=== PATIENT | female | born 1960 | race Caucasian/White ===

== ENCOUNTER 2017-02-22 15:00 | Inpatient (IN) | payer BC, MEDICARE ==
[2017-03-03] MEDS ORDERED: METOCLOPRAMIDE 10 MG TABLET PO ONE (06:00)
[2017-03-03] MEDS ORDERED: FAMOTIDINE 20MG TABLET PO ONE (06:00)
[2017-03-03] MEDS ORDERED: CLINDAMYCIN 600MG/50ML PREMIX 600 MG/50 ML BAG IVPB ONE (06:00)
[2017-03-03] MEDS ORDERED: ACETAMINOPHEN 1,000 MG/100 ML BTL IV ONE (06:00)
[2017-10-13] MEDS ORDERED: CLINDAMYCIN 600MG/50ML PREMIX 600 MG/50 ML BAG IVPB ONE (06:00)
[2017-10-13] MEDS ORDERED: METOCLOPRAMIDE 10 MG TABLET PO ONE (06:00)
[2017-10-13] MEDS ORDERED: FAMOTIDINE 20MG TABLET PO ONE (06:00)
[2017-10-13] MEDS ORDERED: ACETAMINOPHEN 1,000 MG/100 ML BTL IV ONE (06:00)
[2017-10-13] MEDS ORDERED: SENNOSIDES/DOCUSATE SODIUM UD CAPSULE PO PRN (10:00)
[2017-10-13] MEDS ORDERED: HYDROMORPHONE HCL 1 MG/ML SYRINGE IVP PRN (10:00)
[2017-10-13] MEDS ORDERED: AL HYDROX/MAG HYDROX 30ML UD PO PRN (10:00)
[2017-10-13] MEDS ORDERED: OXYCODONE HCL 5 MG TABLET PO PRN ×2 (10:00)
[2017-10-13] MEDS ORDERED: MAGNESIUM HYDROXIDE 30 ML UDC PO PRN (10:00)
[2017-10-13] MEDS ORDERED: DIPHENHYDRAMINE HCL 25 MG CAPSULE PO PRN (10:00)
[2017-10-13] MEDS ORDERED: METOCLOPRAMIDE HCL 10 MG/2 ML VIAL IVP PRN (10:00)
[2017-10-13] MEDS ORDERED: ONDANSETRON HCL IV 4 MG/2 ML VIAL IVP PRN (10:00)
[2017-10-13] MEDS ORDERED: ZOLPIDEM TARTRATE 5 MG TABLET PO PRN (10:00)
[2017-10-13] MEDS ORDERED: TRANEXAMIC ACID 1,000 MG in 0.9 % SODIUM CHLORIDE 100ML 100 ML IVPB ONE (11:00)
[2017-10-13] MEDS: RINGERS SOLUTION,LACTATED 1,000 ML IV SCH (11:22)
--- NOTE | 2017-10-13 12:21 | Operative Note ---
DATE OF SURGERY: 10/13/2017 Surgeon: Quentin Juárez DO Referring physician: Rasheed Finley DO PREOPERATIVE DIAGNOSIS: Primary osteoarthritis of the right knee. POSTOPERATIVE DIAGNOSIS: Primary osteoarthritis of the right knee. OPERATION: Right total knee arthroplasty. Anesthesia: Spinal anesthetic. PROCEDURE: This 57-year-old female was taken to the operating room and placed in the supine position on the operating room table. A spinal anesthetic was administered and the right lower extremity was elevated, it was prepped with Hibiclens and draped in the usual sterile fashion. It was exsanguinated and the tourniquet inflated to 300 mmHg. All scrubbed personnel wore personal isolation suits. An anterior longitudinal midline incision was made, followed by a medial parapatellar arthrotomy incision. An intracondylar drill hole was made for the intramedullary alignment darrin and a 10 mm cut was made in the distal femur in 5 degrees of valgus. The patient had a very minimal flexion contracture. The distal femoral cuts were made and the sizing jig was affixed, and a size 67 was seen to be the appropriate size in the anterior posterior dimension, but too wide in the medial lateral direction, therefore, the 65 cutting block was pinned 2 mm anteriorly in 3 degrees of external rotation. The appropriate cuts were subsequently made. We then directed our attention to the proximal tibia. An extramedullary alignment guide was used to cut the proximal tibia, referencing a 10 mm cut off the lateral tibial plateau and the wafer of bone was removed. Remnants of the menisci and osteophytes were removed from the posterior aspect of the joint. The patient did have sclerotic bone in the medial tibial plateau; holes were drilled there for impregnation of the cement. The wound was copiously irrigated with pulse lavage and lactated Ringer's solution. Exparel was injected in the posterior, medial, and lateral corners of the joint. The patella was cut and restored to the anatomic height with a 34 x 7.8 mm patella. The trial components were inserted and a size 75 tibia 14 mm anterior stabilized bearing, a 65 mm femoral component were trialed and excellent stability throughout the full range of motion was noted. Trial components were then removed and the wound again irrigated. All bony surfaces were dried. All components were cemented into place. Excess cement removed after the insertion of each component. Initially, the size 75 tibial base plate was cemented into place, followed by the insertion of the tibial bearing, and subsequently the femur, and finally the patella were implanted. Once the cement had hardened, excellent stability of all the components was identified. The remainder of the Exparel was injected into the periosteum and joint capsule, the proximal tibia, and distal femur. A drain was placed through a separate stab incision and the arthrotomy incision was closed with 2 Vicryl, the subcutaneous tissue closed with 0 Vicryl, the skin was stapled. Sterile dressings with a Polar pack were applied. The patient was taken to the recovery room in satisfactory condition. GROSS PATHOLOGY: This patient has severe medial compartment and patellofemoral compartment osteoarthritis with marked osteophytes present laterally and severe grade 3 changes noted in the lateral tibial plateau. Final components inserted were: A Biomet Surjit Vanguard 65, cruciate retaining femoral component, a 75 tibial base plate, a 14 mm anterior stabilized E1 bearing and a 34 x 7.8 mm patella was used. LARS
[2017-10-13] MEDS ORDERED: TRANEXAMIC ACID 1,000 MG/10 ML ML IV ONE (12:31)
[2017-10-13] MEDS ORDERED: BUPIVACAINE LIPOSOME 266MG/20ML VIAL IV ONE (12:31)
[2017-10-13] MEDS: PATIENT OWN MED: MECLIZINE 25 MG PO SCH ×3 (12:54→22:06)
[2017-10-13] MEDS: ACETAMINOPHEN 1,000 MG/100 ML BTL IV SCH ×3 (12:55→23:53)
[2017-10-13] MEDS ORDERED: DIPHENHYDRAMINE HCL IV 50 MG/ML VIAL IVP ONE (13:27)
[2017-10-13] MEDS ORDERED: LIDOCAINE 2% MDV (20MG/ML) 20ML VIAL IV ONE (13:27)
[2017-10-13] MEDS ORDERED: HYDROMORPHONE HCL 2 MG/ML VIAL IV ONE (13:27)
[2017-10-13] MEDS ORDERED: PROPOFOL 10 MG/ML VIAL IV ONE (13:27)
[2017-10-13] MEDS ORDERED: ONDANSETRON HCL IV 4 MG/2 ML VIAL IVP ONE (13:27)
[2017-10-13] MEDS ORDERED: MIDAZOLAM HCL 2MG/2ML VIAL IV ONE (13:27)
[2017-10-13] MEDS ORDERED: FENTANYL PF 100MCG/2ML VIAL IV ONE (13:27)
[2017-10-13] MEDS ORDERED: FONDAPARINUX 2.5 MG/0.5 ML SYR SQ SCH (16:00)
[2017-10-13] MEDS: CLINDAMYCIN 600MG/50ML PREMIX 600 MG/50 ML BAG IVPB SCH ×2 (16:14→23:17)
[2017-10-13] MEDS: PATIENT OWN MED: OMEPRAZOLE 40 MG PO SCH (16:19)
--- NOTE | 2017-10-13 18:35 | Rehab Evaluation ---
Patient Information - Patient Information Diagnosis: OA L knee s/p TKA Ordered Treatment: PT Evaluate and Treat Status: Initial Evaluation Surgery: Yes (L TKA) Date of Surgery: 10/13/17 History: Detail (Pt states that she was originally scheduled for L TKA in February,, but her sodium was too low and it has taken this long for it to stabilize at a high enough level to have surgery. She underwent L TKA this morning and admitted to MedSurg unit.) Past Med/Melania Hx Detail: Detail Past Medical/Surgical Hx: PAST MEDICAL/SURGICAL HISTORY Past Surgical History Right meniscus repair 2005 & 2006-bilateral wrist cycsts remove Cholecystectomy Appendectomy Infusaport in/out (removed in 2010) PMH - Respiratory Hx Respiratory Disorders No Hx Bronchitis Yes PMH - Cardiovascular Hx Cardiovascular Disorders Yes Hx Edema Yes: BUE & BLE Hx Hypertension Yes Hx Heart Murmur Yes: when younger Exercise Tolerance Fair Comment: high cholesterol PMH - Neuro Hx Neurological Disorders Yes Hx Dizziness Yes: vertigo PMH - GI Hx Gastrointestinal Disorders Yes Hx Abdominal Pain Yes Hx Gastroesophageal Reflux Yes Hx Irritable Bowel Yes Hx Weight Loss/Weight Gain Yes: 40 lb loss over past year PMH - Hx Genitourinary Disorders No Hx Age of Menopause 54 Hx Bladder Problem Yes: bladder incontinence wears shield Comment: pt has hyponatremia fld restr 68 oz/day b/p meds changed PMH - Endocrine Hx Endocrine Disorders Yes Hx Thyroid Disease Yes Hx of NIDDM Yes Comment: FBS 110 - 120 PMH - Musculoskeletal Hx Musculoskeletal Disorders Yes Hx Arthritis Yes Comment: right knee pain PMH - Psych Hx Psychiatric Problems Yes Hx Anxiety Yes Hx Depression Yes Hx Suicide Attempt Yes: years ago Comment: schizophrenic, boarderline personality disorder , ?bipolar, "cutter" PMH - Hematology/Oncology Hx Hematology/Oncology Yes Disorders Hx Anemia Yes Premorbid Status: Detail (Pt was ambulating independently w/o assistive device, but she had a single tip cane that she sometimes used. She was ascending/ descending steps to enter house with two feet to a stair.) Social History: Detail (Pt lives in a mobile home with her 30 yo son who works a variable schedule at the [employer]. She anticipates a short rehab stay as she needs to be independent at home.) Precautions: [place], Fall - Time With Patient Total Time Spent With Patient (Min): 50 Treatment Procedures: Detail (PT Evaluation) Subjective Information - Subjective Information Per Patient (Pt was sound asleep upon PT's arrival, difficult to awaken. Quite groggy and disoriented for a while before starting mobility. Reported dizziness but no nausea. Acknowledged that she had received pain medication recently.) Objective Data - Pain Pain Present: Yes Pain Intensity: 7 Pain Scale Used: Numeric (1 - 10) - Mental Status Patient Orientation: Person, Place - Visual Perception Appears within normal limits for therapeutic activities - ROM Not within normal limits (CPM for L LE set to 0-60 degrees and patient seemed to be tolerating it well. L hip and ankle ROM is WNL. R LE ROM is WNL at the hip, knee and ankle.) - Strength/Tone Not within normal limits (3-/5 strength in L hip flexion, extension, abduction, adduction, L knee flexion and extension, 4/5 strength in L ankle motions. R LE ms groups are grossly 4/5.) - Coordination Appears within normal limits for therapeutic activities - Bed Mobility Needs Assist (Required minimal assist for L LE in/out of CPM and in/out of bed.) - Transfers Needs Assist (CGA for sit/stand and VCs for proper hand placement; VCs for proper gait sequence w/standard walker. Pivoted to bedside chair and sat during linen change, then pivoted to bedside commode, w/CGA and VCs.) - Balance Balance Sitting: Good Balance Standing: Good (With standard walker. Pt reported dizziness with all movements.) - Sensation Intact - Gait Detail (Took several steps transferring from bedside to bedside chair, then to commode. She did not feel that she could walk to bathroom today.) Therapy Assessment - Therapy Assessment Detail (Pt exhibits ROM, mobility, and strength impairments consistent with her post-surgical condition. She is a good candidate for physical therapy.) Patient Education - Patient Education Teaching Topic: Disease Process, Equipment Use, Exercise/Activity Response: Reinforcement Needed Teaching Method: Discussion, Demonstration Teaching Recipient: Patient Barriers To Learning: None Problem List - Problem List Physical Therapy Problem List: Detail (1. Requires assist for bed mobility. 2. Requires contact guard assist for transfers. 3. Impaired ROM and strength of L knee/LE. 4. Difficulty walking.) Goals - Goals Physical Therapy Goals: 1. Pt will be independent w/bed mobility. 2. Pt will perform sit/stand transfers to standard walker w/supervision. 3. Pt will ambulate household distances w/standard walker w/supervision. 4. Pt will be independent in a home exercise program for ROM and strengthening. Prognosis - Prognosis Good Plan - Plan Physical Therapy Plan: Pt will be seen twice daily to advance bed mobility, transfer, and gait training and reinforce home exercise program; further plan to be developed pending determination of transfer to short term rehab status.
[2017-10-13] MEDS ORDERED: PATIENT OWN MED: SIMVASTATIN 20 MG PO SCH (22:00)
[2017-10-13] MEDS: OXYCODONE HCL 5 MG TABLET PO PRN (22:04)
[2017-10-13] MEDS: BENZTROPINE 2 MG PO SCH (22:05)
[2017-10-13] MEDS: DICYCLOMINE 10 MG PO SCH (22:05)
[2017-10-13] MEDS: FELODIPINE 5 MG PO SCH (22:06)
[2017-10-13] MEDS: RISPERIDONE 3 MG PO SCH (22:07)
[2017-10-13] MEDS: RISPERIDONE 4 MG PO SCH (22:07)
[2017-10-14] MEDS: OXYCODONE HCL 5 MG TABLET PO PRN ×2 (02:07→06:00)
[2017-10-14] MEDS: RINGERS SOLUTION,LACTATED 1,000 ML IV SCH (04:07)
[2017-10-14] MEDS: PATIENT OWN MED: OMEPRAZOLE 40 MG PO SCH (06:00)
[2017-10-14 06:44] LABS: HEMATOCRIT 30.4 % (35.0-47.0); HEMOGLOBIN 9.7 gm/dl (11.6-16.0); MEAN CELL VOLUME 84.7 fl (81-97); MEAN CORPUSCULAR HGB CONC 31.9 g/dl (32-36); MEAN PLATELET VOLUME 10.5 fl (7.4-10.4); PLATELET COUNT 316 K/uL (130-400); RED BLOOD COUNT 3.59 M/uL (3.80-5.40); RED CELL DISTRIBUTION WIDTH 13.4 % (11.5-14.5); WHITE BLOOD COUNT W/O DIFF 12.3 K/uL (4.2-12.2)
[2017-10-14] MEDS ORDERED: PATIENT OWN MED: LEVOTHYROXINE 125 MCG PO SCH (07:00)
[2017-10-14] MEDS: CLINDAMYCIN 600MG/50ML PREMIX 600 MG/50 ML BAG IVPB SCH (07:34)
[2017-10-14] MEDS: PATIENT OWN MED: MECLIZINE 25 MG PO SCH ×2 (08:00→13:33)
[2017-10-14] MEDS: BENZTROPINE 2 MG PO SCH (09:22)
[2017-10-14] MEDS: FELODIPINE 5 MG PO SCH (09:23)
[2017-10-14] MEDS: DICYCLOMINE 10 MG PO SCH (09:23)
[2017-10-14] MEDS: RISPERIDONE 4 MG PO SCH (09:24)
[2017-10-14] MEDS: RISPERIDONE 3 MG PO SCH (09:24)
[2017-10-14] MEDS ORDERED: OXYCODONE HCL/APAP 5MG/325MG TABLET PO PRN (10:00)
[2017-10-14] MEDS ORDERED: OXYCODONE/APAP 7.5MG/325MG TABLET PO PRN ×2 (10:00)
[2017-10-14] MEDS ORDERED: PATIENT OWN MED: LORATADINE 10 MG PO SCH (10:00)
[2017-10-14] MEDS ORDERED: ACETAMINOPHEN 325 MG TAB PO PRN (10:00)
[2017-10-14] MEDS ORDERED: PATIENT OWN MED: SERTRALINE 100 MG PO SCH (10:00)
[2017-10-14] MEDS ORDERED: HYDROCODONE/APAP 7.5/325MG TABLET PO PRN ×2 (10:00)
--- NOTE | 2017-10-14 10:23 | Physical Therapy Tx Note ---
Physical Therapy Tx Note - Treatment Note Tolerated: Fair (Pt. reported 8/10 pain at start of tx. Pt. reported that she is constantly dizzy regardless of the position she is in. Pt. was found standing in the bathroom with nursing upon PT arrival, and pt. had drain removed during session.) Total Time Spent With Patient: 30 Physical Therapy Tx Note: Detail (Pt. performed 10 repetitions of the following exercises: heel slides, quad sets, glut sets, and ankle pumps. Pt. was instructed to avoid rotating her LE while in bed. Pt. was instructed to perform HEP and she was instructed to move her operative LE throughout the day due to nursing order to D/C the CPM. Pt. verbalized understanding of her exercises, but required cues to appropriately perform them. Pt. was groggy from medications , fell asleep once and verbalized her memory is "bad". Pt. required mod assist x2 to perform transfer from seated to supine, she required assistance via trapeeze and required cues to facilitate hip extension with contralateral lower extremity to assist with bed mobility. Pt. was not assessed for gait due to elevated pain levels, limited time secondary to drain removal and nursing with pt. in bathroom, and the pt.'s reports of dizziness. Pt. was left supine with call light available, nursing was notified of pt.'s status, and pt. was left with OT for further evaluation.) Physical Therapy Problem List: Detail (1. Requires assist for bed mobility. 2. Requires contact guard assist for transfers. 3. Impaired ROM and strength of L knee/LE. 4. Difficulty walking.) Physical Therapy Goals: 1. Pt will be independent w/bed mobility. 2. Pt will perform sit/stand transfers to standard walker w/supervision. 3. Pt will ambulate household distances w/standard walker w/supervision. 4. Pt will be independent in a home exercise program for ROM and strengthening. Prognosis: Moderate (Pt.'s pain limited treatment today, and she required multiple cues to appropriately position her extremities during bed mobility and transfers.) Physical Therapy Plan: See pt. during P.M. session today for assessment of inpatient goals, determine if pt. is appropriate for transition to swingbed; perform bed mobility training, balance training, gait training, ROM and strengthening as tolerated.
--- NOTE | 2017-10-14 11:01 | Rehab Evaluation ---
Patient Information - Patient Information Diagnosis: OA Right knee s/p TKA Ordered Treatment: OT Evaluate and Treat Status: Initial Evaluation Surgery: Yes (right TKA) Date of Surgery: 10/13/17 History: Detail (Pt states that she was originally scheduled for R TKA in February,, but her sodium was too low and it has taken this long for it to stabilize at a high enough level to have surgery.) Past Medical/Surgical Hx: PAST MEDICAL/SURGICAL HISTORY Past Surgical History Right meniscus repair 2005 & 2006-bilateral wrist cycsts remove Cholecystectomy Appendectomy Infusaport in/out (removed in 2010) PMH - Respiratory Hx Respiratory Disorders No Hx Bronchitis Yes PMH - Cardiovascular Hx Cardiovascular Disorders Yes Hx Edema Yes: BUE & BLE Hx Hypertension Yes Hx Heart Murmur Yes: when younger Exercise Tolerance Fair Comment: high cholesterol PMH - Neuro Hx Neurological Disorders Yes Hx Dizziness Yes: vertigo PMH - GI Hx Gastrointestinal Disorders Yes Hx Abdominal Pain Yes Hx Gastroesophageal Reflux Yes Hx Irritable Bowel Yes Hx Weight Loss/Weight Gain Yes: 40 lb loss over past year PMH - Hx Genitourinary Disorders No Hx Age of Menopause 54 Hx Bladder Problem Yes: bladder incontinence wears shield Comment: pt has hyponatremia fld restr 68 oz/day b/p meds changed PMH - Endocrine Hx Endocrine Disorders Yes Hx Thyroid Disease Yes Hx of NIDDM Yes Comment: FBS 110 - 120 PMH - Musculoskeletal Hx Musculoskeletal Disorders Yes Hx Arthritis Yes Comment: right knee pain PMH - Psych Hx Psychiatric Problems Yes Hx Anxiety Yes Hx Depression Yes Hx Suicide Attempt Yes: years ago Comment: schizophrenic, boarderline personality disorder , ?bipolar, "cutter" PMH - Hematology/Oncology Hx Hematology/Oncology Yes Disorders Hx Anemia Yes Premorbid Status: Detail (Pt lives with 30 y/o son in a mobile home. She has 5 steps and 1 railing at the entrance. She has a tub/shower combination with an extended tub bench, no grab bars and a standard height toilet, no grab bars. She ambulates in the house without an assistive device most of the time but she has a straight cane that she uses as needed. She is Ind with home mgmt, meal prep and laundry. She has a straight cane, standard walker and tub seat.) Social History: Detail (Her son is supportive but not available to assist as he works a variable schedule at the [employer]. She anticipates a short rehab stay as she needs to be independent at home.) Precautions: [place], Fall - Time With Patient Total Time Spent With Patient (Min): 45 Treatment Procedures: Detail (OT eval low complexity) Subjective Information - Subjective Information Per Patient Objective Data - Pain Pain Present: Yes (03/21) - Mental Status Patient Orientation: Oriented x3 - Visual Perception Appears within normal limits for therapeutic activities (Pt wears glasses at all times.) - ROM Within normal limits ([place] UE AROM WNL) - Strength/Tone Within normal limits ([place] UE MMT 4+/5 throughout) - Coordination Appears within normal limits for therapeutic activities - Bed Mobility Independent (Ind with supine to sit although she required encouragement due to pain.) - Transfers Needs Assist (Sit to stand from EOB and chair with walker and min assist as well as verbal cueing.) - Balance Balance Sitting: Good Balance Standing: Fair - Sensation Intact - Gait Detail (Pt able to take several steps from EOB to chair with walker and min assist/verbal cues.) - ADL's/IADL's Detail (Pt able to complete upper body dressing Indly. Doffed briefs Indly, donned underpants and sweatpants with min assist to start over right foot and to pull tab dealer hips while in standing. Pt very fearful and painful with standing. ) Therapy Assessment - Therapy Assessment Detail (Pt requires min assist for LE dressing, decreased Ind and safety with mobility needed for ADLs/IADLs, ongoing vertigo with activity.) Problem List - Problem List Physical Therapy Problem List: Detail (1. Requires assist for bed mobility. 2. Requires contact guard assist for transfers. 3. Impaired ROM and strength of L knee/LE. 4. Difficulty walking.) Occupational Therapy Problem List: Detail (1. Decreased Ind with LE dressing. 2. Decreased Ind with transfers and ambulation 3. Need to assess safety with showering.) Goals - Goals Physical Therapy Goals: 1. Pt will be independent w/bed mobility. 2. Pt will perform sit/stand transfers to standard walker w/supervision. 3. Pt will ambulate household distances w/standard walker w/supervision. 4. Pt will be independent in a home exercise program for ROM and strengthening. Occupational Therapy Goals: 1. Pt will be safe and Ind with lower body dressing. 2. Pt will be safe and Ind with showering in sitting. 3. Pt will be Ind with transfers and ambulating household distances to allow safe and Ind IADLs. Prognosis - Prognosis Good Plan - Plan Physical Therapy Plan: See pt. during P.M. session today for assessment of inpatient goals, determine if pt. is appropriate for transition to swingbed; perform bed mobility training, balance training, gait training, ROM and strengthening as tolerated. Occupational Therapy Plan: OT 2-4 times to address self cares, functional mobility and safety to allow return home.
--- NOTE | 2017-10-14 15:01 | Discharge Summary ---
DATE OF ADMISSION: 10/13/2017 DATE OF DISCHARGE: 10/15/2017 ADMITTING DIAGNOSIS: Osteoarthritis of right knee. DISCHARGE DIAGNOSIS: Osteoarthritis of right knee. OPERATIVE PROCEDURE: Elective right total knee arthroplasty. HOSPITAL COURSE: This 57-year-old female was admitted to the hospital for elective total knee arthroplasty and progressed very slowly with physical therapy and was in need of additional therapy and care but did not need acute hospitalization and therefore will be transferred to a swing bed program at [facility] on 10/15/2017. She will take aspirin 325 mg daily. She will take Percocet 5/325 mg 1 every 6 hours as necessary for pain. Wear her MARC hose during the day and remove them at night. Routine wound instructions were given. She will follow up in the clinic in 2 weeks for staple removal. She will continue with physical therapy while she is at swing bed and home physical therapy arranged at discharge. LARS
== END 2017-10-14 14:23 | DRG 470 ==
LOC: MEDSURG 10-13 05:54
PROVIDERS: ADMIT Orthopaedic Surgery; ATTEND Orthopaedic Surgery
PROC: 0SRC069 Replacement of Right Knee Joint with Oxidized Zirconium on Polyethylene Synthetic Substitute, Cemented, Open Approach (ICD-10-PCS; principal; 2017-10-13 07:30)
DX: M17.11 Unilateral primary osteoarthritis, right knee (principal); E03.9 Hypothyroidism, unspecified; D64.9 Anemia, unspecified; E78.00 Pure hypercholesterolemia, unspecified; I10 Essential (primary) hypertension; E11.9 Type 2 diabetes mellitus without complications; Z79.84 Long term (current) use of oral hypoglycemic drugs
CPT/HCPCS: 36416; 82948; 85025; 93005; 94760; 94761; 97165; J1200; J2405; J7120

== ENCOUNTER 2017-10-14 13:54 | Inpatient (IN) | payer MEDICARE ==
[2017-10-14] MEDS ORDERED: FONDAPARINUX 2.5 MG/0.5 ML SYR SQ ONE (14:23)
[2017-10-14] MEDS ORDERED: ACETAMINOPHEN 325 MG TAB PO PRN (15:25)
--- NOTE | 2017-10-14 15:46 | Rehab Evaluation ---
Patient Information - Patient Information Diagnosis: DJD R Knee Ordered Treatment: PT Evaluate and Treat Status: Initial Evaluation Surgery: Yes (R TKA) Date of Surgery: 10/13/17 Past Medical/Surgical Hx: PAST MEDICAL/SURGICAL HISTORY Past Surgical History Right meniscus repair 2005 & 2007-bilateral wrist cycsts remove Cholecystectomy Appendectomy Infusaport in/out (removed in 2010) right total knee arthroplasty 10/13/17 PMH - Respiratory Hx Respiratory Disorders No Hx Bronchitis Yes PMH - Cardiovascular Hx Cardiovascular Disorders Yes Hx Edema Yes: BUE & BLE Hx Hypertension Yes Hx Heart Murmur Yes: when younger Comment: high cholesterol PMH - Neuro Hx Neurological Disorders Yes Hx Dizziness Yes: vertigo PMH - GI Hx Gastrointestinal Disorders Yes Hx Abdominal Pain Yes Hx Gastroesophageal Reflux Yes Hx Irritable Bowel Yes Hx Weight Loss/Weight Gain Yes: 40 lb loss over past year PMH - Hx Genitourinary Disorders No Hx Age of Menopause 54 Hx Bladder Problem Yes: bladder incontinence wears shield Comment: pt has hyponatremia fld restr 68 oz/day b/p meds changed PMH - Endocrine Hx Endocrine Disorders Yes Hx Diabetes Yes Hx Thyroid Disease Yes Hx of NIDDM Yes Comment: FBS 110 - 120 PMH - Musculoskeletal Hx Musculoskeletal Disorders Yes Hx Arthritis Yes Comment: right knee pain PMH - Psych Hx Psychiatric Problems Yes Hx Anxiety Yes Hx Depression Yes Hx Suicide Attempt Yes: years ago Feelings of Hopelessness No Comment: bipolar,borderline personality,cutter, electroshock therapy PMH - Hematology/Oncology Hx Hematology/Oncology Yes Disorders Hx Anemia Yes Social History: Detail (Pt. lives in a mobile home with her 30 year old son, who works a variable schedule. She has 3-4 steps, a landing, then another small step to enter the home. She says that she has a tub/shower combination, with a shower seat. She has a standard height toilet, but denies grab bars around the toilet and shower.) Precautions: [place] - Time With Patient Total Time Spent With Patient (Min): 30 Treatment Procedures: Detail (PT Initial Evaluation) Subjective Information - Subjective Information Per Patient (Said that she is having pain in the R knee, and can't seem to wake up. Has some complaints of dizziness, but has been dealing with that for a long period of time.) Objective Data - Pain Pain Present: Yes Pain Intensity: 8 Pain Scale Used: Numeric (1 - 10) - Mental Status Patient Orientation: Oriented x3 - ROM Not within normal limits (R Knee - Extension - -18 degrees, Flexion 81 degrees. L LE was WNL at the hip, knee, and ankle) - Strength/Tone Not within normal limits (3-/5 in R hip flexion, extension, abduction, adduction , L knee flexion and extnesion. 4/5 in R ankle motions. L LE muscle groups are grossly 4/5.) - Coordination Appears within normal limits for therapeutic activities - Bed Mobility Needs Assist (Required minimal assist for moving the R LE in and out of bed, when transferring from supine to sit) - Transfers Needs Assist (Required Verbal cues for hand placement during sit to stand (not pulling up on the walker) and stand to sit (not hanging on to the walker when sitting down).) - Balance Balance Sitting: Good Balance Standing: Fair (WBAT on R LE - did not bear weight on LE.) - Sensation Intact - Gait Detail (Uses standard walker and WBAT R LE. Required verbal cues to keep the walker closer to her, so she did not reach out too far and lose balance. The patient ambulated from her bed to her doorway and back (about 22 feet total). Did not bear much weight through the R LE during ambulation.) Therapy Assessment - Therapy Assessment Detail (The patient exhibits decreased ROM and strength on the R LE, which is to be expected s/p surgery. The patient has difficulty with ambulation, as expected s/p surgery. The patient is a good candidate for PT.) Patient Education - Patient Education Teaching Topic: Exercise/Activity Response: Return Demonstration Teaching Method: Discussion, Demonstration Teaching Recipient: Patient Barriers To Learning: Cognitive/Verbal Problem List - Problem List Physical Therapy Problem List: Detail (1) Increased pain R LE 2) Decreased ROM and strength as to be expected s/p R TKA 3) Difficulty walking 4) Assist for bed mobility) Goals - Goals Physical Therapy Goals: 1) Pt will be independent with all bed mobility. 2) Pt will be independent with all transfers. 3) Pt will be independent with ambulation with appropriate assistive device WBAT on the R LE household distances. 4) Pt will be independent with HEP for ROM and strengthening. 5) The patient ambulate with supervision on stairs WBAT on the R LE. Prognosis - Prognosis Good (Good to return to home environment.) Plan - Plan Physical Therapy Plan: The patient will be seen 1-2x/day M-F for gait training, lower extremity strengthening and ROM exercises, and transfer training.
--- NOTE | 2017-10-14 16:06 | Swing Bed Certification/Recert ---
Initial Certification Due: 10/14/17 14 Day Re-Cert Due: 10/28/17 44 Day Re-Cert Due: 11/27/17 74 Day Re-Cert Due: 12/27/17 CERTIFICATION 3 CERTIFICATION OF PATIENT ADMISSION Required at time of admission. Due: 10/14/17 I certify that SNF services are required to be given on an inpatient basis because of the above named patient's need for custodial care on a continuing basis for the condition(s) for which he/she was receiving inpatient hospital services prior to his/her transfer to the SNF. The patient's current needs for skilled care includes: [PT/OT rehab services] Jayda Perry N.P. 10/14/17
--- NOTE | 2017-10-14 16:09 | History & Physical ---
History of Present Illness - Date Date of Service for History & Physical: 10/15/17 - History of Present Illness Admitting Diagnosis: Right toal knee arthroplasty History of Present Illness: Mrs. Sarkar is a 57 year-old female who was admitted to swing bed on 10/14 for physical therapy and care. She underwent a right total knee arthroplasty with Dr. Juárez on 10/13/17. Her history includes: hypertension, hypothyroidism, hyperlipidemia, obesity, vertigo, irritable bowel syndrome, NIDDM (no meds), schizophrenia, borderline personality disorder, anxiety, depression, history of self-harm (cutting bilateral arms and thighs), appendectomy, and cholecystectomy. While in the swing bed program, plan to continue aspirin 325mg daily for prevention of DVT, percocet 5/325mg q6h prn pain. Pt. will participate in physical therapy, wear MARC hose during the day and remove at night. Pt. is schedule to follow up with Dr. Juárez in 2 weeks for staple removal. Plan to arrange home PT with discharge. Plan to advance activity as tolerated per PT and continue ADA diet. 10/14/17 1600: Pt. is resting comfortably in bed. She denies pain at the present time. Right knee dressing clean, dry and intact. Plan to continue with PT/OT eval and treatment. 10/15/17 1310: Nursing staff reported that pt. "slid" to floor while ambulating twice, once last evening around 6:30pm and again this morning around 11:00am. PT was working with pt. during second occurrence. Pt. denied dizziness/ lightheadedness and worsening right knee pain. Pt. stated that she lowered herself to the floor because she felt uneasy with bearing weight on right knee, she denies knee buckling. Dr. Juárez was called and advised to use knee immobilizer on right knee only for ambulation for short-term to help pt. feel more stable/secure. Nursing staff did complete incident reports for both occurrences. Continuing to monitor pt. for increased pain/decreased mobility/ stability. Vital signs remain stable. PCP: Dr. Finley Ortho: Dr. Juárez General - Cognitive Patterns Orientation: Oriented x3 - Communication Preferred Language?: Irish Archival Records Clerk Required: No Level of Education: High School Preferred Method of Learning: Seeing, Doing Comprehension Ability: No Impairment Able to Read: Yes Able to Write: Yes Select best description of speech pattern: Clear Speech Ability to express ideas and wants: Understood Understanding verbal content: Understands - Mood and Behavior Patterns Appearance: Well Groomed Mood: Normal Attitude: Cooperative Motor Activity: Calm Affect: Appropriate Hallucinations: Denies - Psychosocial Well-Being Usual Living Arrangement: Spouse - Physical Functioning Activity Level: Up with assist x1 Turning: Self ad darci ROM Ability: Moves all extremities Assistive Devices: 2 Wheel Walker Ambulation Ability: Needs Assist Bed Mobility: Independent Transfer Ability: Needs Assist Bathing Ability: Needs Assist Personal Hygiene: Needs Assist Dressing Ability: Needs Assist Eating (Feeding) Ability: Independent Toileting Ability: Needs Assist Administer Own Medication: Independent - Continence Bowel Pattern: Normal for Patient Bladder Pattern: Normal - Dental Status Unable to examine: No Broken or loosely fitting full or partial dentures: No No natural teeth or tooth fragment(s) (edentulous): No Abnormal mouth tissue (ulcers, masses, oral lesions, etc.): No Obvious or likely cavity or broken natural teeth: No Inflamed or bleeding gums or loose natural teeth: No Mouth/facial pain, discomfort or difficulty chewing: No - Nutrition Screening Poor oral intake > 1 week: No Unplanned weight loss in specified time frame: No Nutrition Support via tube feedings or parenteral nutrition: No Pressure Ulcer: No Significantly underweight define as BMI <18.5 kg/m2: No Albumin <2.5mg/dL: No Persistent nausea/vomiting/diarrhea >3 days: No Difficulty chewing/swallowing/mouth sores: No Admitting Diagnosis: No Nutrition Risk Score: Low Risk Review of Systems Constitutional: Reports: As per HPI. Denies: Chills, Fever, Malaise, Night sweats, Weakness, Weight change Eyes: Reports: As per HPI. Denies: Eye discharge, Eye pain, Photophobia, Vision change ENT: Reports: As per HPI. Denies: Congestion, Dental pain, Ear pain, Epistaxis , Hearing loss, Throat pain Respiratory: Reports: As per HPI. Denies: Cough, Dyspnea, Hemoptysis, Stridor, Wheezes Cardiovascular: Reports: As per HPI. Denies: Arrhythmia, Chest pain, Dyspnea on exertion, Edema, Murmurs, Orthopnea, Palpitations, Paroxysmal nocturnal dyspnea, Rheumatic Fever, Syncope Endocrine: Reports: As per HPI. Denies: Fatigue, Heat or cold intolerance, Polydipsia, Polyuria Gastrointestinal: Reports: As per HPI. Denies: Abdominal pain, Constipation, Diarrhea, Hematemesis, Hematochezia, Melena, Nausea, Vomiting Genitourinary: Reports: As per HPI. Denies: Abnormal menses, Discharge, Dyspareunia, Dysuria, Frequency, Hematuria, Incontinence, Retention, Urgency Musculoskeletal: Reports: As per HPI, Other (s/p right TKA). Denies: Arthralgia , Back pain, Gout, Joint swelling, Myalgia, Neck pain Skin: Reports: As per HPI, Other (Right TKA- josiah in place). Denies: Bruising, Change in color, Change in hair/nails, Lesions, Pruritus, Rash Neurological: Reports: As per HPI. Denies: Abnormal gait, Confusion, Headache, Numbness, Paresthesias, Seizure, Tingling, Tremors, Vertigo, Weakness Psychiatric: Reports: Anxiety, Depression Hematological/Lymphatic: Reports: As per HPI. Denies: Anemia, Blood Clots, Easy bleeding, Easy bruising, Swollen glands Past Medical History - SOCIAL HISTORY Smoking Status: Former smoker - SURGICAL HISTORY Past Surgical History: Right meniscus repair. 2005 & 2007-bilateral wrist cycsts remove. Cholecystectomy. Appendectomy. Infusaport in/out (removed in 2010). right total knee arthroplasty 10/13/17 - RESPIRATORY Hx Respiratory Disorders: No Hx Bronchitis: Yes - CARDIOVASCULAR Hx Cardio Disorders: Yes Hx Hypertension: Yes - NEURO Hx Neuro Disorders: Yes Hx Dizziness: Yes (vertigo) - GI Hx GI Disorders: Yes Hx Irritable Bowel: Yes Hx of Polyps: Yes - Hx Genitourinary Disorders: No Hx Bladder Problem: Yes (bladder incontinence wears shield) Comment:: pt has hyponatremia fld restr 68 oz/day b/p meds changed - ENDOCRINE Hx Endocrine Disorders: Yes Hx Diabetes: Yes - MUSCULOSKELETAL Hx Musculoskeletal Disorders: Yes Hx Arthritis: Yes Comment:: right knee pain - PSYCH Hx Psych Problems: Yes Hx Anxiety: Yes Hx Depression: Yes Feelings of Hopelessness: No Comment:: bipolar,borderline personality,cutter,electroshock therapy - HEMATOLOGY/ONCOLOGY Hx Hematology/Oncology Disorders: Yes Hx Anemia: Yes Family Medical History Any Significant Family History?: Yes Hx Cancer: Father, Mother *Cancer Comment: brain & uterine Hx Diabetes: Brother/Sister Hx Heart Disease: Father *Heart Comment: pacemaker H&P Meds/Allergies - Allergies Allergies: Allergies Allergy/AdvReac Type Severity Reaction Status Date / Time adhesive AdvReac RASH Verified 01/28/15 10:12 amoxicillin AdvReac unknown Verified 01/28/15 10:58 bacitracin AdvReac RASH Verified 01/28/15 10:15 [From Neosporin ([id number])] bacitracin zinc AdvReac RASH Verified 01/28/15 10:15 [From Neosporin ([id number])] cephalexin monohydrate AdvReac unknown Verified 01/28/15 10:58 [From Keflex] divalproex sodium AdvReac unknown Verified 01/28/15 10:58 [From Depakote] neomycin sulfate AdvReac RASH Verified 01/28/15 10:15 [From Neosporin ([id number])] Penicillins AdvReac unknown Verified 01/28/15 10:58 polymyxin B AdvReac RASH Verified 01/28/15 10:15 [From Neosporin ([id number])] Sulfa (Sulfonamide AdvReac unknown Verified 01/28/15 10:11 Antibiotics) - Active Medications Active Medications: Current Medications Acetaminophen (Tylenol 325mg) 650 mg PO Q6H PRN PRN Reason: MILD PAIN Aspirin (Ecotrin (Ec)) 325 mg PO DAILY [facility] Oxycodone/Acetaminophen (Percocet 5-325 Mg Tablet) 1 udtab PO Q6H PRN PRN Reason: MODERATE TO SEVERE PAIN Stop: 10/21/17 15:26 Patient Own Med: (Loratadine 10 Mg) 1 each PO DAILY [facility] Patient Own Med: (Meclizine 25 Mg) 2 each PO QIDWMHS [facility] Patient Own Med: (Sertraline 100 Mg) 1 each PO DAILY [facility] Patient Own Med: (Benztropine 2 Mg) 1 each PO BID [facility] Patient Own Med: (Omeprazole 40 Mg) 1 each PO BIDAC [facility] Patient Own Med: (Risperidone 3 Mg) 1 each PO BID [facility] Patient Own Med: (Risperidone 4 Mg) 1 each PO BID [facility] Patient Own Med: Levothyroxine 125 Mcg 1 each PO DAILYTHY [facility] Patient Own Med: (Dicyclomine 10 Mg) 1 each PO BID [facility] Patient Own Med: (Simvastatin 20 Mg) 1 each PO QHS [facility] Patient Own Med: (Felodipine Er 5 Mg) 1 each PO BID [facility] Physical Exam - General General Appearance: Alert, Oriented x3, Cooperative, No acute distress - Head Head exam: Normal inspection - Eye Eye exam: Normal appearance, PERRL Pupils: Normal accommodation - ENT ENT exam: Normal exam, Mucous membranes moist, Normal external ear exam, Normal orophraynx, TM's normal bilaterally Ear exam: Normal external inspection. negative: External canal tenderness Nasal Exam: Normal inspection. negative: Discharge, Sinus tenderness Mouth exam: Normal external inspection, Tongue normal Teeth exam: Normal inspection. negative: Dental caries Throat exam: Normal inspection. negative: Tonsillar erythema, Tonsillar exudate - Neck Neck exam: Normal inspection, Full ROM. negative: Tenderness - Respiratory Respiratory exam: Normal lung sounds bilaterally. negative: Respiratory distress - Cardiovascular Cardiovascular Exam: Regular rate, Normal rhythm, Normal heart sounds - GI/Abdominal GI/Abdominal exam: Soft, Normal bowel sounds. negative: Tenderness - Rectal Rectal exam: Deferred - exam: Deferred - Extremities Extremities exam: Other (Right TKA on 10/13- dressing clean/dry/intact. Josiah in place per nursing staff. Drain removed. ) - Back Back exam: Reports: Normal inspection, Full ROM. Denies: Muscle spasm, Rash noted, Tenderness - Neurological Neurological exam: Alert, Normal gait, Oriented X3, Reflexes normal - Psychiatric Psychiatric exam: Normal affect, Normal mood - Skin Skin exam: Dry, Intact, Normal color, Warm, Other (Right knee dressing intact) Discharge Potential - Discharge Needs Community Services Used Prior to Admission: None Patient Discharge Plan Description: Return Home Community Services Needed at Discharge: Physical Therapy Plan - Swing Bed Certification Initial Certification Due: 10/14/17 14 Day Re-Cert Due: 10/28/17 44 Day Re-Cert Due: 11/27/17 74 Day Re-Cert Due: 12/27/17 - Detailed Diagnosis and Plan (1) Physical deconditioning Current Visit: Yes Status: Acute Base Code: R53.81 - OTHER MALAISE Comment : 10/15/17 1300: Pt. s/o right TKA 10/13/17. PT/OT evals completed on 10/15. PT will work on gait training, lower extremity strengthening and ROM exercises. Pt. will continue PT throughout swing bed stay and will plan home PT for discharge. (2) History of total right knee replacement Current Visit: Yes Status: Acute Base Code: Z96.651 - PRESENCE OF RIGHT ARTIFICIAL KNEE JOINT Comment: 10/15/17 1300: right TKA on 10/13/[address] Juárez. PT eval completed on 10/15. Will continue to monitor and treat pain and healing. Pt. to f/u with Dr. Juárez in 2 weeks for staple removal. (3) At risk for deep venous thrombosis Current Visit: Yes Status: Acute Base Code: Z91.89 - OTH PERSONAL RISK FACTORS, NOT ELSEWHERE CLASSIFIED Comment: 10/15/17 1300: Pt. at increase risk for DVT secondary to decreaed mobility and recent surgery. Per. Dr. Juárez, pt. is recieveing aspirin 325mg daily for DVT prophylaxis. (4) Full code status Current Visit: Yes Status: Acute Base Code: Z78.9 - OTHER SPECIFIED HEALTH STATUS Comment: 10/15/17 1300: Pt. is full code status.
[2017-10-14] MEDS: PATIENT OWN MED: OMEPRAZOLE 40 MG PO SCH (16:28)
[2017-10-14] MEDS: PATIENT OWN MED: MECLIZINE 25 MG PO SCH ×2 (17:35→22:13)
[2017-10-14] MEDS: FELODIPINE 5 MG PO SCH (21:50)
[2017-10-14] MEDS: BENZTROPINE 2 MG PO SCH (21:50)
[2017-10-14] MEDS: DICYCLOMINE 10 MG PO SCH (21:50)
[2017-10-14] MEDS: OXYCODONE HCL/APAP 5MG/325MG TABLET PO PRN (21:58)
[2017-10-14] MEDS: RISPERIDONE 3 MG PO SCH (22:04)
[2017-10-14] MEDS: RISPERIDONE 4 MG PO SCH (22:04)
[2017-10-14] MEDS: PATIENT OWN MED: SIMVASTATIN 20 MG PO SCH (22:14)
[2017-10-15] MEDS: OXYCODONE HCL/APAP 5MG/325MG TABLET PO PRN ×3 (03:54→17:09)
[2017-10-15] MEDS: PATIENT OWN MED: OMEPRAZOLE 40 MG PO SCH ×2 (06:24→17:09)
[2017-10-15] MEDS: PATIENT OWN MED: LEVOTHYROXINE 125 MCG PO SCH (06:24)
[2017-10-15] MEDS: PATIENT OWN MED: MECLIZINE 25 MG PO SCH ×4 (08:00→22:00)
[2017-10-15] MEDS: PATIENT OWN MED: LORATADINE 10 MG PO SCH (09:26)
[2017-10-15] MEDS: FELODIPINE 5 MG PO SCH ×2 (09:27→21:24)
[2017-10-15] MEDS: DICYCLOMINE 10 MG PO SCH ×2 (09:27→21:24)
[2017-10-15] MEDS: RISPERIDONE 3 MG PO SCH ×2 (09:28→21:25)
[2017-10-15] MEDS: RISPERIDONE 4 MG PO SCH ×2 (09:28→21:25)
[2017-10-15] MEDS: PATIENT OWN MED: SERTRALINE 100 MG PO SCH (09:29)
[2017-10-15] MEDS: ASPIRIN 325 MG TAB ENTERIC-COATED PO SCH (09:30)
[2017-10-15] MEDS: BENZTROPINE 2 MG PO SCH ×2 (09:32→21:24)
--- NOTE | 2017-10-15 12:16 | Physical Therapy Tx Note ---
Physical Therapy Tx Note - Treatment Note Tolerated: Fair Total Time Spent With Patient: 35 Physical Therapy Tx Note: Detail (Pt was resting in bed upon arrival. Pt states feeling a little dizzy, and states that she got up earlier to use the bathroom and sat in the chair for about an hour. Pt states that she needed to use the bathroom again. Pt transfered independently in bed from supine to sit at edge of bed. Gait belt was applied to patient and she stood independently. Pt asked how far she needed to walk today, and PHYSICAL METEOROLOGIST stated that she would like to see what she will tolerate. Pt was ambulating with walker and needed verbal cues to keep walker closer to her as she was reaching too far. Pt then stated that she slid to the floor last night when she got to get up to use the bathroom with the nurses. Pt moved walker out in front of her, slid her right leg out in front and slowly lowered herself to the floor to sit with assist from PHYSICAL METEOROLOGIST. Pt stated no pain after sitting down and stated that her leg did not give out but that she didnt want to walk that far. Nursing was alerted and pt was assisted to stand with 2 people and min to mod assist to stand. Pt continued to walk to the bathroom with contact guard assist and used the bathroom including self care and handwashing, cleaned and put in her dentures and then returned to room with no loss of balance. Pt still required verbal cues for proper placement of walker. PHYSICAL METEOROLOGIST suggested trying to walk at least to the door but Pt. refused. Pt returned to bed. Pt completed all transfers with contact guard only. Pt completed bed mobility independently and without complaint of pain. Pt completed ex's of ankle pumps, ankle rolls, quad sets, glute sets, and heel slides all x 10 with right leg. PHYSICAL METEOROLOGIST applied the cold pack to right knee. Pt was given nursing call button and phone within reach. Pt stated the her knee was just a little achey and did not need any pain meds. Pt to be seen 2x's each day for PT as needed.) Physical Therapy Problem List: Detail (1) Increased pain R LE 2) Decreased ROM and strength as to be expected s/p R TKA 3) Difficulty walking 4) Assist for bed mobility) Physical Therapy Goals: 1) Pt will be independent with all bed mobility. 2) Pt will be independent with all transfers. 3) Pt will be independent with ambulation with appropriate assistive device WBAT on the R LE household distances. 4) Pt will be independent with HEP for ROM and strengthening. 5) The patient ambulate with supervision on stairs WBAT on the R LE. Prognosis: Moderate Physical Therapy Plan: The patient will be seen 1-2x/day M-F for gait training, lower extremity strengthening and ROM exercises, and transfer training.
--- NOTE | 2017-10-15 16:01 | Physical Therapy Tx Note ---
Physical Therapy Tx Note - Treatment Note Tolerated: Good (Patient still claims to be quite dizzy whenever gets up, so took several minutes of sitting edge of bed to be ready to stand up. Patient able to get her leg into/out of bed ok but quite a bit of pain with bending knee yet. Would not walk further than to the bathroom this afternoon for gait but putting more weight on right LE now and less hopping.) Total Time Spent With Patient: 30 Physical Therapy Tx Note: Detail (Patient reclining on bed when first entered room talking on cell phone. Supine position to work on exercises for right knee with heel slides, SLR with assist, quad, ham and glut sets then ankle pumps. Able to move self from supine to sitting position with use trapeze and sliding right leg with left LE then sat edge of bed for several minutes to let head clear and take several deep breaths. Knee flexion about 45 degrees only and lots of swelling in knee. Sit to stand with cues to use rail and bed then walked with standard walker about 10 to 15 feet to bathroom, used toilet with lots of cues to keep walker right in front of her body. Washed hands then ambulated with standard walker and WBAT back to the bed. Patient able to get her leg into bed with several tries. Replaced cryocuff on knee and made sure tray table and call light close.) Physical Therapy Problem List: Detail (1) Increased pain R LE 2) Decreased ROM and strength as to be expected s/p R TKA 3) Difficulty walking 4) Assist for bed mobility) Physical Therapy Goals: 1) Pt will be independent with all bed mobility. 2) Pt will be independent with all transfers. 3) Pt will be independent with ambulation with appropriate assistive device WBAT on the R LE household distances. 4) Pt will be independent with HEP for ROM and strengthening. 5) The patient ambulate with supervision on stairs WBAT on the R LE. Prognosis: Good (Fairly good at this time but patient needs to work on more deep breathing exercises and sit up more for dizziness depending on what causing that symptom.) Physical Therapy Plan: The patient will be seen 1-2x/day M-F for gait training, lower extremity strengthening and ROM exercises, and transfer training.
[2017-10-15] MEDS: PATIENT OWN MED: SIMVASTATIN 20 MG PO SCH (21:25)
[2017-10-16] MEDS: PATIENT OWN MED: LEVOTHYROXINE 125 MCG PO SCH (06:07)
[2017-10-16] MEDS: PATIENT OWN MED: OMEPRAZOLE 40 MG PO SCH ×2 (06:07→16:09)
[2017-10-16] MEDS: PATIENT OWN MED: MECLIZINE 25 MG PO SCH ×5 (07:48→21:17)
[2017-10-16] MEDS: ASPIRIN 325 MG TAB ENTERIC-COATED PO SCH (09:12)
[2017-10-16] MEDS: PATIENT OWN MED: LORATADINE 10 MG PO SCH (09:14)
[2017-10-16] MEDS: BENZTROPINE 2 MG PO SCH ×2 (09:15→21:17)
[2017-10-16] MEDS: FELODIPINE 5 MG PO SCH ×2 (09:15→21:17)
[2017-10-16] MEDS: DICYCLOMINE 10 MG PO SCH ×2 (09:15→21:17)
[2017-10-16] MEDS: PATIENT OWN MED: SERTRALINE 100 MG PO SCH (09:17)
[2017-10-16] MEDS: RISPERIDONE 4 MG PO SCH ×2 (09:17→21:16)
[2017-10-16] MEDS: RISPERIDONE 3 MG PO SCH ×2 (09:17→21:16)
[2017-10-16] MEDS: OXYCODONE HCL/APAP 5MG/325MG TABLET PO PRN ×3 (09:20→23:59)
--- NOTE | 2017-10-16 11:16 | Physical Therapy Tx Note ---
Physical Therapy Tx Note - Treatment Note Tolerated: Good Total Time Spent With Patient: 20 Physical Therapy Tx Note: Detail (Nursing states patient was found walking in [place] last night without walker. Patient was reclined in bed upon QUILT SEWER arrival. Patient states 4/10 pain in right knee. Patient transferred supine to sit independently. Patient transferred sit to and from stand CGA x1. Patient ambulated 20 feet with standard walker CGA x1. Patient performed the following exercises seated in chair x10 reps each: heel slides, hip flexion, quad sets, LAQ, hamstring sets, glut squeezes, and ankle pumps. Patient tolerated treatment well. Patient displays decreased strength and endurance with quad sets, LAQ, hamstring sets, hip flexion, and glut squeezes. Patient displays decreased knee flexion ROM with seated heel slides. Patient was left seated in chair with call light within reach.) Physical Therapy Problem List: Detail (1) Increased pain R LE 2) Decreased ROM and strength as to be expected s/p R TKA 3) Difficulty walking 4) Assist for bed mobility) Physical Therapy Goals: 1) Pt will be independent with all bed mobility. 2) Pt will be independent with all transfers. 3) Pt will be independent with ambulation with appropriate assistive device WBAT on the R LE household distances. 4) Pt will be independent with HEP for ROM and strengthening. 5) The patient ambulate with supervision on stairs WBAT on the R LE. Prognosis: Good Physical Therapy Plan: The patient will be seen 1-2x/day M-F for gait training, lower extremity strengthening and ROM exercises, and transfer training.
[2017-10-16] MEDS ORDERED: MAGNESIUM HYDROXIDE 30 ML UDC PO ONE (11:55)
[2017-10-16] MEDS ORDERED: MAGNESIUM HYDROXIDE 30 ML UDC PO PRN (11:58)
--- NOTE | 2017-10-16 13:28 | Physical Therapy Tx Note ---
Physical Therapy Tx Note - Treatment Note Tolerated: Good Total Time Spent With Patient: 30 Physical Therapy Tx Note: Detail (Patient was sitting in chair upon DISTRICT TRAFFIC CHIEF arrival. Patient states right knee is more sore this afternoon. Patient transferred sit to and from stand SBA x1. Patient ambulated 44 feet with standard walker SBA x1. Patient transferred sit to supine independently. Patient performed the following exercises supine in bed x10 reps each: quad sets , glut squeezes, hamstring sets, heel slides, SLR with assist, adductor squeeze , and ankle pumps. Patient tolerated treatment well. Patient reports tired after treatment. Patient was left reclined in bed with call light within reach. ) Physical Therapy Problem List: Detail (1) Increased pain R LE 2) Decreased ROM and strength as to be expected s/p R TKA 3) Difficulty walking 4) Assist for bed mobility) Physical Therapy Goals: 1) Pt will be independent with all bed mobility. 2) Pt will be independent with all transfers. 3) Pt will be independent with ambulation with appropriate assistive device WBAT on the R LE household distances. 4) Pt will be independent with HEP for ROM and strengthening. 5) The patient ambulate with supervision on stairs WBAT on the R LE. Prognosis: Good Physical Therapy Plan: The patient will be seen 1-2x/day M-F for gait training, lower extremity strengthening and ROM exercises, and transfer training.
[2017-10-16] MEDS: [UNRECOGNIZED DRUG - OTHER] PO SCH ×2 (16:10→21:17)
[2017-10-16] MEDS: PATIENT OWN MED: SIMVASTATIN 20 MG PO SCH (21:16)
[2017-10-17] MEDS: PATIENT OWN MED: OMEPRAZOLE 40 MG PO SCH ×2 (06:03→17:48)
[2017-10-17] MEDS: PATIENT OWN MED: LEVOTHYROXINE 125 MCG PO SCH (06:03)
[2017-10-17] MEDS: PATIENT OWN MED: MECLIZINE 25 MG PO SCH ×4 (07:39→22:07)
[2017-10-17] MEDS: OXYCODONE HCL/APAP 5MG/325MG TABLET PO PRN ×3 (07:39→18:34)
[2017-10-17] MEDS: ASPIRIN 325 MG TAB ENTERIC-COATED PO SCH (09:44)
[2017-10-17] MEDS: [UNRECOGNIZED DRUG - OTHER] PO SCH ×3 (09:46→22:05)
[2017-10-17] MEDS: RISPERIDONE 3 MG PO SCH ×2 (09:48→22:07)
[2017-10-17] MEDS: DICYCLOMINE 10 MG PO SCH ×2 (09:48→22:06)
[2017-10-17] MEDS: BENZTROPINE 2 MG PO SCH ×2 (09:48→22:05)
[2017-10-17] MEDS: FELODIPINE 5 MG PO SCH ×2 (09:48→22:06)
[2017-10-17] MEDS: PATIENT OWN MED: LORATADINE 10 MG PO SCH (09:48)
[2017-10-17] MEDS: RISPERIDONE 4 MG PO SCH ×2 (09:49→22:07)
[2017-10-17] MEDS: PATIENT OWN MED: SERTRALINE 100 MG PO SCH (09:49)
--- NOTE | 2017-10-17 10:28 | Rehab Evaluation ---
Patient Information - Patient Information Diagnosis: DJD R Knee Ordered Treatment: OT Evaluate and Treat Status: Initial Evaluation Surgery: Yes (R TKA) Date of Surgery: 10/13/17 Past Medical/Surgical Hx: PAST MEDICAL/SURGICAL HISTORY Past Surgical History Right meniscus repair 2005 & 2007-bilateral wrist cycsts remove Cholecystectomy Appendectomy Infusaport in/out (removed in 2010) right total knee arthroplasty 10/13/17 PMH - Respiratory Hx Respiratory Disorders No Hx Bronchitis Yes PMH - Cardiovascular Hx Cardiovascular Disorders Yes Hx Edema Yes: BUE & BLE Hx Hypertension Yes Hx Heart Murmur Yes: when younger Comment: high cholesterol PMH - Neuro Hx Neurological Disorders Yes Hx Dizziness Yes: vertigo PMH - GI Hx Gastrointestinal Disorders Yes Hx Abdominal Pain Yes Hx Gastroesophageal Reflux Yes Hx Irritable Bowel Yes Hx Weight Loss/Weight Gain Yes: 40 lb loss over past year PMH - Hx Genitourinary Disorders No Hx Age of Menopause 54 Hx Bladder Problem Yes: bladder incontinence wears shield Comment: pt has hyponatremia fld restr 68 oz/day b/p meds changed PMH - Endocrine Hx Endocrine Disorders Yes Hx Diabetes Yes Hx Thyroid Disease Yes Hx of NIDDM Yes Comment: FBS 110 - 120 PMH - Musculoskeletal Hx Musculoskeletal Disorders Yes Hx Arthritis Yes Comment: right knee pain PMH - Psych Hx Psychiatric Problems Yes Hx Anxiety Yes Hx Depression Yes Hx Suicide Attempt Yes: years ago Feelings of Hopelessness No Comment: bipolar,borderline personality,cutter, electroshock therapy PMH - Hematology/Oncology Hx Hematology/Oncology Yes Disorders Hx Anemia Yes Premorbid Status: Detail (Pt lives with 30 y/o son in a mobile home. She has 5 steps and 1 railing at the entrance. She has a tub/shower combination with an extended tub bench, no grab bars and a standard height toilet, no grab bars. She ambulates in the house without an assistive device most of the time but she has a straight cane that she uses as needed. She is Ind with home mgmt, meal prep and laundry. She has a straight cane, standard walker and tub seat.) Social History: Detail (Pt has a supportive son but he works a variable schedule.) Precautions: [place] - Time With Patient Total Time Spent With Patient (Min): 45 Treatment Procedures: Detail (OT eval low complexity.) Subjective Information - Subjective Information Per Patient Objective Data - Pain Pain Present: Yes (02/19) - Mental Status Patient Orientation: Oriented x3 - Visual Perception Appears within normal limits for therapeutic activities (Pt wears glasses at all times.) - ROM Within normal limits ([place] UE AROM WNL) - Strength/Tone Within normal limits ([place] UE strength 4+/5 throughout) - Coordination Appears within normal limits for therapeutic activities - Bed Mobility Independent (Ind with sit to supine) - Transfers Independent (Ind with sit to stand from chair and shower seat using walker.) - Balance Balance Sitting: Good Balance Standing: Good - Sensation Intact - Gait Detail (Pt ambulating in room with standard walker and SBA.) - ADL's/IADL's Detail (Pt able to complete doffing shirt, bra, capris, briefs and slippers Indly. Completed total body showering in sitting Indly using hand held shower. Dried self Indly. Donned bra, shirt, briefs, capris, socks and slippers using modified dressing techniques. Pt required short rest breaks due to shortness of breath.) Therapy Assessment - Therapy Assessment Detail (Pt demonstrates Ind with dressing and showering tasks using modified techniques. She presents with shortness of breath and decreased endurance with ADLs.) Problem List - Problem List Physical Therapy Problem List: Detail (1) Increased pain R LE 2) Decreased ROM and strength as to be expected s/p R TKA 3) Difficulty walking 4) Assist for bed mobility) Occupational Therapy Problem List: Detail (1. Decreased endurance needed for IADLs.) Goals - Goals Physical Therapy Goals: 1) Pt will be independent with all bed mobility. 2) Pt will be independent with all transfers. 3) Pt will be independent with ambulation with appropriate assistive device WBAT on the R LE household distances. 4) Pt will be independent with HEP for ROM and strengthening. 5) The patient ambulate with supervision on stairs WBAT on the R LE. Occupational Therapy Goals: 1. Pt will participate in endurance related activities to allow safe and Ind IADLs. Prognosis - Prognosis Good Plan - Plan Physical Therapy Plan: The patient will be seen 1-2x/day M-F for gait training, lower extremity strengthening and ROM exercises, and transfer training. Occupational Therapy Plan: OT 2-4 times to address endurance and safety with IADLs to allow return home.
[2017-10-17 11:57] LABS: BASO % 0.1 % (0-6); EOS % 0.9 % (0-6); GRAN % 71.8 % (47-80); HEMATOCRIT 26.4 % (35.0-47.0); LYMPH % 18.3 % (16-45); MEAN CORPUSCULAR HGB CONC 33.7 g/dl (32-36); MEAN PLATELET VOLUME 10.1 fl (7.4-10.4); MONO % 8.9 % (0-9); PLATELET COUNT 361 K/uL (130-400); RED BLOOD COUNT 3.18 M/uL (3.80-5.40); RED CELL DISTRIBUTION WIDTH 13.3 % (11.5-14.5); WHITE BLOOD COUNT W/O DIFF 9.5 K/uL (4.2-12.2)
[2017-10-17 12:02] LABS: HEMOGLOBIN 8.9 gm/dl (11.6-16.0); MEAN CORPUSCULAR HEMOGLOBIN 27.9 pg (27-33)
[2017-10-17 12:15] LABS: ALBUMIN 3.4 g/dL (4.0-5.0); ALKALINE PHOSPHATASE 78 U/L (35-104); ALT/SGPT 25 U/L (<33); AST/SGOT 24 U/L (10.0-35.0); BLOOD UREA NITROGEN 12 mg/dL (6-20); CREATININE 0.7 mg/dL (0.5-0.9); EST GLOMERULAR FILTRATION RATE > 60 mL/min; GLUCOSE,RANDOM 166 mg/dL (74-109); TOTAL PROTEIN 6.7 g/dL (6.6-8.7)
[2017-10-17 12:28] LABS: THYROID STIMULATING HORMONE 3.57 uIU/mL (0.270-4.20)
--- NOTE | 2017-10-17 14:56 | Physical Therapy Tx Note ---
Physical Therapy Tx Note - Treatment Note Tolerated: Good Total Time Spent With Patient: 35 Physical Therapy Tx Note: Detail (The patient was sitting in her chair upon arrival. The patient was able to go from sit to stand with supervision for safety only. She was then able to ambulate from her room to the nurse's station and back, about 80 feet total. The patient completed 3 stairs ascending/ descending. She was able to complete the stairs with verbal cues for placement of the walker on appropriate steps, and verbal cues for proper leg lead in both ascending and descending. She returned to her bed in supine independently. The patient was independent with bed mobility and scooting once she arrived there. The patient's HEP was reviewed, and the patient demonstrated understanding of her HEP.) Physical Therapy Problem List: Detail (1) Increased pain R LE 2) Decreased ROM and strength as to be expected s/p R TKA 3) Difficulty walking 4) Assist for bed mobility) Physical Therapy Goals: 1) Pt will be independent with all bed mobility - MET. 2) Pt will be independent with all transfers -. 3) Pt will be independent with ambulation with appropriate assistive device WBAT on the R LE household distances. 4) Pt will be independent with HEP for ROM and strengthening. 5) The patient ambulate with supervision on stairs WBAT on the R LE. Prognosis: Good Physical Therapy Plan: The patient will be seen 1-2x/day M-F for gait training, lower extremity strengthening and ROM exercises, and transfer training.
[2017-10-17] MEDS: PATIENT OWN MED: SIMVASTATIN 20 MG PO SCH (22:08)
[2017-10-18] MEDS: OXYCODONE HCL/APAP 5MG/325MG TABLET PO PRN ×3 (01:48→22:22)
[2017-10-18] MEDS: PATIENT OWN MED: LEVOTHYROXINE 125 MCG PO SCH (06:13)
[2017-10-18] MEDS: PATIENT OWN MED: OMEPRAZOLE 40 MG PO SCH ×2 (06:13→18:30)
[2017-10-18] MEDS: PATIENT OWN MED: MECLIZINE 25 MG PO SCH ×4 (08:00→22:25)
[2017-10-18] MEDS: FERROUS SULFATE 325 MG TAB PO SCH (10:41)
[2017-10-18] MEDS: ASPIRIN 325 MG TAB ENTERIC-COATED PO SCH (10:41)
[2017-10-18] MEDS: [UNRECOGNIZED DRUG - OTHER] PO SCH ×3 (10:42→22:23)
[2017-10-18] MEDS: BENZTROPINE 2 MG PO SCH ×2 (10:43→22:24)
[2017-10-18] MEDS: DICYCLOMINE 10 MG PO SCH ×2 (10:43→22:24)
[2017-10-18] MEDS: PATIENT OWN MED: LORATADINE 10 MG PO SCH (10:44)
[2017-10-18] MEDS: FELODIPINE 5 MG PO SCH ×2 (10:44→22:25)
[2017-10-18] MEDS: RISPERIDONE 4 MG PO SCH ×2 (10:45→22:26)
[2017-10-18] MEDS: PATIENT OWN MED: SERTRALINE 100 MG PO SCH (10:46)
[2017-10-18] MEDS: RISPERIDONE 3 MG PO SCH ×2 (10:47→22:25)
--- NOTE | 2017-10-18 11:25 | Physical Therapy Tx Note ---
Physical Therapy Tx Note - Treatment Note Total Time Spent With Patient: 30 Physical Therapy Tx Note: Detail (The patient was sitting in her chair upon arrival. The patient was able to transfer from sit to stand with supervision only. The patient then ambulated from her room to the nurse's station (about 60 feet) with supervision. The patient required after that distance. The patient was able to complete 6 stairs with supervision for safety. The patient was then taken back to her room in a wheelchair due to fatigue after the stairs. The patient then was independent in transferring from the wheelchair to standing then to her chair in her room. The patient was left in her chair with her call light in reach.) Physical Therapy Problem List: Detail (1) Increased pain R LE 2) Decreased ROM and strength as to be expected s/p R TKA 3) Difficulty walking 4) Assist for bed mobility) Physical Therapy Goals: 1) Pt will be independent with all bed mobility - MET. 2) Pt will be independent with all transfers. 3) Pt will be independent with ambulation with appropriate assistive device WBAT on the R LE household distances. 4) Pt will be independent with HEP for ROM and strengthening. 5) The patient ambulate with supervision on stairs WBAT on the R LE - MET Prognosis: Good Physical Therapy Plan: The patient will be seen 1-2x/day M-F for gait training, lower extremity strengthening and ROM exercises, and transfer training.
[2017-10-18] MEDS ORDERED: OXYCODONE HCL/APAP 5MG/325MG TABLET PO ONE (13:04)
[2017-10-18] MEDS ORDERED: MAGNESIUM HYDROXIDE 30 ML UDC PO ONE (15:21)
--- NOTE | 2017-10-18 16:44 | Physical Therapy Tx Note ---
Physical Therapy Tx Note - Treatment Note Tolerated: Fair Total Time Spent With Patient: 25 Physical Therapy Tx Note: Detail (Patient was sitting in her chair upon arrival. The patient was independent in sit to stand, and was able to ambulate from her chair to the nurse's station (about 40 feet) with supervision for safety. She was able to complete one stair descending, but then had complaints of increased dizziness. The patient was immediately seated in a wheelchair and returned to her room. She said that her dizziness had subsided upon return to her room. The patient requested to be in bed, and was able to transfer in to supine and scoot herself to the middle independently. While in bed the patient compelted 10 reps of the following exercises: Quad sets, glut. sets, and ankle pumps. She was able to complete 5 reps of SLR, but had increased fatigue with exercise. The patient was left in bed supine with her call light in reach.l) Physical Therapy Problem List: Detail (1) Increased pain R LE 2) Decreased ROM and strength as to be expected s/p R TKA 3) Difficulty walking 4) Assist for bed mobility) Physical Therapy Goals: 1) Pt will be independent with all bed mobility - MET. 2) Pt will be independent with all transfers - MET. 3) Pt will be independent with ambulation with appropriate assistive device WBAT on the R LE household distances - PARTIALLY MET - Requires supervision during ambulation. 4) Pt will be independent with HEP for ROM and strengthening - MET. 5) The patient ambulate with supervision on stairs WBAT on the R LE - MET Prognosis: Moderate Physical Therapy Plan: The patient will be seen 1-2x/day M-F for gait training, lower extremity strengthening and ROM exercises, and transfer training.
[2017-10-18] MEDS ORDERED: NOVOLOG FLEXPEN (INSULIN ASPART) 100 UNITS/ML SQ PRN (17:53)
[2017-10-18] MEDS: PATIENT OWN MED: SIMVASTATIN 20 MG PO SCH (22:26)
[2017-10-19] MEDS: PATIENT OWN MED: OMEPRAZOLE 40 MG PO SCH (06:21)
[2017-10-19] MEDS: PATIENT OWN MED: LEVOTHYROXINE 125 MCG PO SCH (06:21)
[2017-10-19] MEDS: OXYCODONE HCL/APAP 5MG/325MG TABLET PO PRN (08:22)
[2017-10-19] MEDS: PATIENT OWN MED: MECLIZINE 25 MG PO SCH (08:24)
[2017-10-19] MEDS: PATIENT OWN MED: SERTRALINE 100 MG PO SCH ×2 (08:25→09:04)
[2017-10-19] MEDS: [UNRECOGNIZED DRUG - OTHER] PO SCH ×2 (08:25→09:03)
[2017-10-19] MEDS: RISPERIDONE 4 MG PO SCH ×2 (08:26→09:04)
[2017-10-19] MEDS: PATIENT OWN MED: LORATADINE 10 MG PO SCH ×2 (08:27→09:03)
[2017-10-19] MEDS: RISPERIDONE 3 MG PO SCH ×2 (08:27→09:04)
[2017-10-19] MEDS: FELODIPINE 5 MG PO SCH ×2 (08:28→09:03)
[2017-10-19] MEDS: BENZTROPINE 2 MG PO SCH ×2 (08:28→09:03)
[2017-10-19] MEDS: DICYCLOMINE 10 MG PO SCH ×2 (08:29→09:03)
[2017-10-19] MEDS: ASPIRIN 325 MG TAB ENTERIC-COATED PO SCH (09:02)
[2017-10-19] MEDS: FERROUS SULFATE 325 MG TAB PO SCH (09:02)
--- NOTE | 2017-10-19 09:05 | Discharge Summary ---
Providers Discharge Summary Date: 10/19/17 Date of admission: 10/14/17 14:24 Expected Date of Discharge: 10/19/17 Attending physician: RENAE KAUR Primary care physician: MANASA FINLEY D.O. Physical Exam - Vital Signs Vital Signs: Vital Signs - Last 24 Hrs Temp Pulse Resp BP Pulse Ox 10/19/17 08:00 98.4 F 94 H 18 151/83 99 10/18/17 20:00 97.2 F L 83 18 138/59 95 - General General Appearance: Alert, Oriented x3, Cooperative, No acute distress - Head Head exam: Normal inspection - Eye Eye exam: Normal appearance, PERRL Pupils: Normal accommodation - ENT ENT exam: Normal exam, Mucous membranes moist, Normal external ear exam, Normal orophraynx, TM's normal bilaterally Ear exam: Normal external inspection. negative: External canal tenderness Nasal Exam: Normal inspection. negative: Discharge, Sinus tenderness Mouth exam: Normal external inspection, Tongue normal Teeth exam: Normal inspection. negative: Dental caries Throat exam: Normal inspection. negative: Tonsillar erythema, Tonsillar exudate - Neck Neck exam: Normal inspection, Full ROM. negative: Tenderness - Respiratory Respiratory exam: Normal lung sounds bilaterally. negative: Respiratory distress - Cardiovascular Cardiovascular Exam: Regular rate, Normal rhythm, Normal heart sounds - GI/Abdominal GI/Abdominal exam: Soft, Normal bowel sounds. negative: Tenderness - Rectal Rectal exam: Deferred - exam: Deferred - Extremities Extremities exam: Other (Right TKA on 10/13- dressing clean/dry/intact. [place] in place per nursing staff. Drain removed. ) - Back Back exam: Reports: Normal inspection, Full ROM. Denies: Muscle spasm, Rash noted, Tenderness - Neurological Neurological exam: Alert, Normal gait, Oriented X3, Reflexes normal - Psychiatric Psychiatric exam: Normal affect, Normal mood - Skin Skin exam: Dry, Intact, Normal color, Warm, Other (Right knee dressing intact) Hospitalization - Hospitalization Admission Diagnosis: Right total knee arthroplasty. able to participate in less activity - Problem List (1) Physical deconditioning Status: Acute Base Code: R53.81 - OTHER MALAISE Comment: 10/19/17- Pt. s/p right TKA 10/13/17. Improving. PT states she is safe to ambualte 50ft with walker. -PT will continue to work on gait training, lower extremity strengthening and ROM exercises with home PT - has set up home health services -patient to folow up with her surgeon as already scheduled and with her pcp in 1 -2 weeks (2) History of total right knee replacement Status: Acute Base Code: Z96.651 - PRESENCE OF RIGHT ARTIFICIAL KNEE JOINT Comment: 10/19/17: right TKA on 10/13/[address] Juárez. Her pain is pretty well controlled. She has been using ice pack and heat pack as needed and tylenol. She says the percocet does help as well. -follow up wtih Dr. Juárez on 10/27 as scheduled for staple removal -will send home with #10 tab of the percocet 5mg she has been using for pain control. I did expalin that new guidelines recommend no more than 7 days of opioid therapy following surgery and that she should by using other modalities for pain control first and this medication only for severe, uncontrolled pain. She voiced her understanding. (3) Full code status Status: Acute Base Code: Z78.9 - OTHER SPECIFIED HEALTH STATUS Comment: 10/19 : Pt. is full code status. - Hospitalization Course Disposition: Home, Self-Care Hospital Course: Mrs. Sarkar is a 57 year-old female who was admitted to swing bed on 10/14 for physical therapy and care. She underwent a right total knee arthroplasty with Dr. Juárez on 10/13/17. Her history includes: hypertension, hypothyroidism, hyperlipidemia, obesity, vertigo, irritable bowel syndrome, NIDDM (no meds), schizophrenia, borderline personality disorder, anxiety, depression, history of self-harm (cutting bilateral arms and thighs), appendectomy, and cholecystectomy. While in the swing bed program, plan to continue aspirin 325mg daily for prevention of DVT, percocet 5/325mg q6h prn pain. Pt. will participate in physical therapy, wear ARIE hose during the day and remove at night. Pt. is schedule to follow up with Dr. Juárez in 2 weeks for staple removal. Plan to arrange home PT with discharge. Plan to advance activity as tolerated per PT and continue ADA diet. 10/14/17 1600: Pt. is resting comfortably in bed. She denies pain at the present time. Right knee dressing clean, dry and intact. Plan to continue with PT/OT eval and treatment. 10/15/17 1310: Nursing staff reported that pt. "slid" to floor while ambulating twice, once last evening around 6:30pm and again this morning around 11:00am. PT was working with pt. during second occurrence. Pt. denied dizziness/ lightheadedness and worsening right knee pain. Pt. stated that she lowered herself to the floor because she felt uneasy with bearing weight on right knee, she denies knee buckling. Dr. Juárez was called and advised to use knee immobilizer on right knee only for ambulation for short-term to help pt. feel more stable/secure. Nursing staff did complete incident reports for both occurrences. Continuing to monitor pt. for increased pain/decreased mobility/ stability. Vital signs remain stable. 10/19/17- Patient sitting at bedside about to have her dressing changed. Says she is feeling ready to go home. pt/ot agree that patient is safe to discharge home and continue therapy there. She did have a bm last night and this morning. She hadn't had one for several days prior, but says that is pretty normal for her. PCP: Dr. Finley Ortho: Dr. Juárez Abnormal Labs: Abnormal Lab Results 10/15/17 10/16/17 10/17/17 Range/Units 08:02 07:47 11:48 RBC 3.18 L (3.80-5.40) M/uL Hgb 8.9 L (11.6-16.0) gm/dl Hct 26.4 L (35.0-47.0) % Sodium (136-145) mmol/L Potassium (3.4-4.5) mmol/L Chloride (98-107) mmol/L POC Glucose 151 H 146 H (70-110) mg/dL Random Glucose (74-109) mg/dL Albumin (4.0-5.0) g/dL Albumin/Globulin Ratio (1.1-1.8) 10/17/17 Range/Units 11:48 RBC (3.80-5.40) M/uL Hgb (11.6-16.0) gm/dl Hct (35.0-47.0) % Sodium 131 L (136-145) mmol/L Potassium 3.3 L (3.4-4.5) mmol/L Chloride 90 L (98-107) mmol/L POC Glucose (70-110) mg/dL Random Glucose 166 H (74-109) mg/dL Albumin 3.4 L (4.0-5.0) g/dL Albumin/Globulin Ratio 1.0 L (1.1-1.8) Condition at Discharge: (1) Good Discharge Medications - Discharge Medications Prescriptions: Oxycodone HCl/Acetaminophen [Percocet 5mg/325mg] 1 udtab PO Q6H PRN #10 tablet PRN Reason: Severe Pain Home Medications: Ambulatory Orders Acetaminophen [Tylenol 325Mg] 650 mg PO Q6H PRN tablet 10/19/17 [Last Taken Unknown] Ferrous Sulfate [Iron] 325 mg PO DAILY tablet 10/19/17 [Last Taken Unknown] Insulin Aspart [Novolog Flexpen] 1 unit SQ TIDINS PRN ml 10/19/17 [Last Taken Unknown] Oxycodone HCl/Acetaminophen [Percocet 5mg/325mg] 1 udtab PO Q6H PRN #10 tablet 10/19/17 [Last Taken Unknown] Discharge Plan - Discharge Instructions Activity at Discharge: As Per Physical Therapy Diet at Discharge: Diabetic Diet Instructions: Aspirin (By mouth), Precautions after Total Joint Replacement Surgery (DC), Knee Replacement (DC) Additional Instructions: 2 Activity: up as tolerated per physical therapy 2 Diet: as tolerated 2 Consults: [PT/ OT/ VSN with [facility]] 2 Follow Up: [Dr. Juárez 10/27, 11am at [facility] Dr. Finley 10/31, 11:30] 2 Dressing/Wound Care: Wrap press n seal around dressing prior to showering and then change dressing daily after showering (Type) (Change) 2 Additional: [] Aspirin 325mg twice per day until Dr. Juárez appt, for a duration of 2 weeks in total since surgery Continue home medications, except stop Uristat until Dr. Juárez resumes medication Try and use heat, ice and Tylenol for pain. You may use one percocet every 6H as needed for severe pain. Wear Arie house around the clock Please call with any questions or concerns Quality Measures - Quality Measures Quality Measures: Documentation of Current Medications in Medical Record, Screening for High Blood Pressure and F/U Documented - Current Medications Quality Measure: Measure #130: Documentation of Current Medications Documentation of Current Medications: <Current Medications Documented/Reviewed> [G8427] - Blood Pressure Screening Quality Measure: Screening for High Blood Pressure and Follow-Up Documented Does Patient Have Any of the Following: Active Dx of HTN Blood Pressure Classification: Pre-Hypertensive BP Reading Systolic Measurement: 142 Diastolic Measurement: 83 Screening for High Blood Pressure: Patient Exclusion, Hx of HTN [G9744] - Elder Abuse Suspicion Index EASI Reference Information: Gerri DILLARD, Nathalie C, Zach D, Regis Fernandes.Development and validation of a tool to assist physicians identification of elder abuse: The Elder Abuse Suspicion Index (EASI ). Journal of Elder Abuse and Neglect, 2008; 20 (3): 276-300.
--- NOTE | 2017-10-19 09:59 | Rehab Discharge Summary ---
Patient Information - Patient Information Diagnosis: DJD R Knee Ordered Treatment: PT Evaluate and Treat Surgery: Yes (R TKA) Date of Surgery: 10/13/17 Past Medical/Surgical Hx: PAST MEDICAL/SURGICAL HISTORY Past Surgical History Right meniscus repair 2005 & 2006-bilateral wrist cycsts remove Cholecystectomy Appendectomy Infusaport in/out (removed in 2010) right total knee arthroplasty 10/13/17 PMH - Respiratory Hx Respiratory Disorders No Hx Bronchitis Yes PMH - Cardiovascular Hx Cardiovascular Disorders Yes Hx Edema Yes: BUE & BLE Hx Hypertension Yes Hx Heart Murmur Yes: when younger Comment: high cholesterol PMH - Neuro Hx Neurological Disorders Yes Hx Dizziness Yes: vertigo PMH - GI Hx Gastrointestinal Disorders Yes Hx Abdominal Pain Yes Hx Gastroesophageal Reflux Yes Hx Irritable Bowel Yes Hx Weight Loss/Weight Gain Yes: 40 lb loss over past year PMH - Hx Genitourinary Disorders No Hx Age of Menopause 54 Hx Bladder Problem Yes: bladder incontinence wears shield Comment: pt has hyponatremia fld restr 68 oz/day b/p meds changed PMH - Endocrine Hx Endocrine Disorders Yes Hx Diabetes Yes Hx Thyroid Disease Yes Hx of NIDDM Yes Comment: FBS 110 - 120 PMH - Musculoskeletal Hx Musculoskeletal Disorders Yes Hx Arthritis Yes Comment: right knee pain PMH - Psych Hx Psychiatric Problems Yes Hx Anxiety Yes Hx Depression Yes Hx Suicide Attempt Yes: years ago Feelings of Hopelessness No Comment: bipolar,borderline personality,cutter, electroshock therapy PMH - Hematology/Oncology Hx Hematology/Oncology Yes Disorders Hx Anemia Yes Premorbid Status: Detail (Pt lives with 30 y/o son in a mobile home. She has 5 steps and 1 railing at the entrance. She has a tub/shower combination with an extended tub bench, no grab bars and a standard height toilet, no grab bars. She ambulates in the house without an assistive device most of the time but she has a straight cane that she uses as needed. She is Ind with home mgmt, meal prep and laundry. She has a straight cane, standard walker and tub seat.) Social History: Detail (Pt has a supportive son but he works a variable schedule.) Precautions: [place] Subjective Information - Subjective Information Per Patient (The patient has variable complaints of pain. The patient reports her pain is less then initially. The patient did not rate her pain using the 0- 10 pain scale.) Objective Data - Mental Status Patient Orientation: Oriented x3 - Visual Perception Appears within normal limits for therapeutic activities - ROM Not within normal limits (R knee AROM after exercise flexion 80 degrees, extension was not formally measure, however apox. -5 degrees of extension.) - Strength/Tone Not within normal limits (The patient continues to present with R quad weakness (3-/5) with inability to achieve a SLR, R hip musculature and hamstring group are generally 4/5 and ankle musculature is 4+/5. L LE musculature is generally 4+ to 5/5.) - Bed Mobility Independent (The patient was independent with supine to and from sit transfer.) - Transfers Independent (The patient was independent with sit to and from stand transfer.) - Balance Balance Sitting: Good Balance Standing: Good - Gait Detail (The patient ambulated independently/supervision for safety with standard walker WBAT on the R LE a distance of 50 plus feet. The patient ambulated on 6 steps with use of railing and folded walker/standard cane with supervision for safety . Patient's son observed patient ambulating on stairs and was instructed in proper technique including proper gaurding techniques.) Therapy Assessment - Therapy Assessment Detail (The patient required supervision at times with ambulation due to mental status/impulsivity however the patient was independent with bed mobility transfers and ambulation. The patient was independent with HEP. The patient is to receive home PT services.) Patient Education - Patient Education Teaching Topic: Exercise/Activity (The patient was instructed in a HEP including heelsides in seated and supine, ankle pumps, quad sets, hamstring sets , SLR (assisted) and gluteal sets.) Response: Return Demonstration Teaching Method: Demonstration, Handout Teaching Recipient: Patient, Family Barriers To Learning: Emotional Problem List - Problem List Physical Therapy Problem List: Detail (1) Increased pain R LE 2) Decreased ROM and strength as to be expected s/p R TKA 3) Difficulty walking 4) Assist for bed mobility) Occupational Therapy Problem List: Detail (1. Decreased endurance needed for IADLs.) Goals - Goals Physical Therapy Goals: 1) Pt will be independent with all bed mobility - MET. 2) Pt will be independent with all transfers - MET. 3) Pt will be independent with ambulation with appropriate assistive device WBAT on the R LE household distances - PARTIALLY MET - Requires supervision during ambulation for safety. 4) Pt will be independent with HEP for ROM and strengthening - MET. 5) The patient ambulate with supervision on stairs WBAT on the R LE - MET Occupational Therapy Goals: 1. Pt will participate in endurance related activities to allow safe and Ind IADLs. Plan - Plan Physical Therapy Plan: The patient is discharged from [facility] to home. The patient is to continue with Home PT. Occupational Therapy Plan: OT 2-4 times to address endurance and safety with IADLs to allow return home.
--- NOTE | 2017-10-19 11:35 | Rehab Discharge Summary ---
Patient Information - Patient Information Diagnosis: DJD R Knee Ordered Treatment: OT Evaluate and Treat Surgery: Yes (R TKA) Date of Surgery: 10/13/17 Past Medical/Surgical Hx: PAST MEDICAL/SURGICAL HISTORY Past Surgical History Right meniscus repair 2005 & 2006-bilateral wrist cycsts remove Cholecystectomy Appendectomy Infusaport in/out (removed in 2010) right total knee arthroplasty 10/13/17 PMH - Respiratory Hx Respiratory Disorders No Hx Bronchitis Yes PMH - Cardiovascular Hx Cardiovascular Disorders Yes Hx Edema Yes: BUE & BLE Hx Hypertension Yes Hx Heart Murmur Yes: when younger Comment: high cholesterol PMH - Neuro Hx Neurological Disorders Yes Hx Dizziness Yes: vertigo PMH - GI Hx Gastrointestinal Disorders Yes Hx Abdominal Pain Yes Hx Gastroesophageal Reflux Yes Hx Irritable Bowel Yes Hx Weight Loss/Weight Gain Yes: 40 lb loss over past year PMH - Hx Genitourinary Disorders No Hx Age of Menopause 54 Hx Bladder Problem Yes: bladder incontinence wears shield Comment: pt has hyponatremia fld restr 68 oz/day b/p meds changed PMH - Endocrine Hx Endocrine Disorders Yes Hx Diabetes Yes Hx Thyroid Disease Yes Hx of NIDDM Yes Comment: FBS 110 - 120 PMH - Musculoskeletal Hx Musculoskeletal Disorders Yes Hx Arthritis Yes Comment: right knee pain PMH - Psych Hx Psychiatric Problems Yes Hx Anxiety Yes Hx Depression Yes Hx Suicide Attempt Yes: years ago Feelings of Hopelessness No Comment: bipolar,borderline personality,cutter, electroshock therapy PMH - Hematology/Oncology Hx Hematology/Oncology Yes Disorders Hx Anemia Yes Premorbid Status: Detail (Pt lives with 30 y/o son in a mobile home. She has 5 steps and 1 railing at the entrance. She has a tub/shower combination with an extended tub bench, no grab bars and a standard height toilet, no grab bars. She ambulates in the house without an assistive device most of the time but she has a straight cane that she uses as needed. She is Ind with home mgmt, meal prep and laundry. She has a straight cane, standard walker and tub seat.) Social History: Detail (Pt has a supportive son but he works a variable schedule.) Precautions: Maiden Objective Data - Pain Pain Present: Yes (Variable pain in right knee) - Mental Status Patient Orientation: Oriented x3 - Visual Perception Appears within normal limits for therapeutic activities (Pt wears glasses.) - ROM Within normal limits ([place] UE AROM WNL) - Strength/Tone Within normal limits ([place] UE MMT 4+/5) - Coordination Appears within normal limits for therapeutic activities - Bed Mobility Independent - Transfers Independent - Balance Balance Sitting: Good Balance Standing: Good - Sensation Intact - Gait Detail (Pt ambulating in room with walker Indly.) - ADL's/IADL's Detail (Pt demonstrates Ind with total body dressing, showering in sitting, grooming/hygiene using modified LE dressing techniques.) Therapy Assessment - Therapy Assessment Detail (Pt is safe and Ind with ADLs and functional mobility.) Problem List - Problem List Physical Therapy Problem List: Detail (1) Increased pain R LE 2) Decreased ROM and strength as to be expected s/p R TKA 3) Difficulty walking 4) Assist for bed mobility) Occupational Therapy Problem List: Detail (1. Decreased endurance needed for IADLs.) Goals - Goals Physical Therapy Goals: 1) Pt will be independent with all bed mobility - MET. 2) Pt will be independent with all transfers - MET. 3) Pt will be independent with ambulation with appropriate assistive device WBAT on the R LE household distances - PARTIALLY MET - Requires supervision during ambulation for safety. 4) Pt will be independent with HEP for ROM and strengthening - MET. 5) The patient ambulate with supervision on stairs WBAT on the R LE - MET Occupational Therapy Goals: Goals Met: 1. Pt will participate in endurance related activities to allow safe and Ind IADLs. Prognosis - Prognosis Good Plan - Plan Physical Therapy Plan: The patient is discharged from [facility] to home. The patient is to continue with Home PT. Occupational Therapy Plan: Pt is discharged home with home OT/PT. Thank you for this referral.
== END 2017-10-19 10:05 | disposition home or self-care (01) | DRG 566 ==
LOC: MEDSURG 14:24
PROVIDERS: ADMIT Internal Medicine; ATTEND Internal Medicine
DX: Z96.651 Presence of right artificial knee joint (principal); R53.81 Other malaise; I10 Essential (primary) hypertension; E03.9 Hypothyroidism, unspecified; E78.5 Hyperlipidemia, unspecified; E11.9 Type 2 diabetes mellitus without complications; F41.8 Other specified anxiety disorders; F20.9 Schizophrenia, unspecified; F60.3 Borderline personality disorder
CPT/HCPCS: 36416; 80053; 82948; 83036; 84443; 85025; 97110; 97116; 97165; 97530; 99306; 99316